=== PATIENT | male | born 1965 | race Hispanic/Latino ===

== ENCOUNTER → 2018-03-28 | Outpatient (CLI) | payer BC ==
[~2018-03-28] MED LIST: IOPAMIDOL 370 MG/ML 200 ML INFUS..BTL INJ ONE; SODIUM CHLORIDE 0.9% 50ML 50 ML ONE
[2018-03-28 09:56] LABS: BLOOD UREA NITROGEN 16 mg/dL (7-26); BUN/CREATININE RATIO 20 (6-25); CREATININE, SERUM 0.79 mg/dL (0.72-1.25); EST GLOMERULAR FILTRATION RATE > 60 ML/MIN (60-)
--- NOTE | 2018-03-28 11:32 | Diagnostic Imaging Report ---
PROCEDURE: CT scan of the chest WITH intravenous contrast, using PE protocol. TECHNIQUE: The chest was scanned utilizing a multidetector helical scanner from the lung apex through the level of the adrenal glands after the IV administration of 61 cc of Isovue 370. Coronal and sagittal multiplanar reformations were obtained. DLP: 1099.10 mGy*cm COMPARISON: None. INDICATIONS: ACUTE EMBOLISM AND THROMBOSIS OF DEEP VEIN OF RLE FINDINGS: Lines/tubes: None. Lungs and Airways: The lungs and airways are normal with no focal abnormality demonstrated. Vague barely perceptible small linear filling defect within the left lower lobe pulmonary artery likely represents changes of recannulization associated with prior PE (coronal series, image #57 and axial series, image #36 and 40). Pleura: The pleural spaces are clear. Heart and mediastinum: The thyroid gland is normal. No significant mediastinal, hilar or axillary lymphadenopathy is seen. The heart and pericardium are within normal limits. Calcification within the aorta. Soft tissues: Normal. Abdomen: Limited contrast-enhanced views of the upper abdomen show no abnormality within the visualized liver, spleen, pancreas, or kidneys. The adrenal glands are normal. Bones: There are degenerative changes of the spine. IMPRESSION: 1. Filling defect into the left lower lobe pulmonary artery could represent subacute clot with partial recannulization or chronic changes. 2. Comparison with old studies would be of benefit. Lawrence Mckeon D.O. Dictated by: Lawrence Mckeon D.O. on 03/28/2018 at 11:38 Electronically approved by: Lawrence Mckeon D.O. on 03/28/2018 at 11:38
== END ==
LOC: CT 08:52
PROVIDERS: ATTEND Family Medicine
DX: I82.401 Acute embolism and thrombosis of unspecified deep veins of right lower extremity (principal)
CPT/HCPCS: 36415; 71260; 82565; 84520; 93971; Q9967

== ENCOUNTER → 2018-10-31 | Outpatient (CLI) | payer BC ==
[~2018-10-31] MED LIST changes: +SODIUM CHLORIDE 0.9% 100 ML 0 ML ONE; +SODIUM CHLORIDE 0.9% 100 ML 100 ML ONE; -SODIUM CHLORIDE 0.9% 50ML 50 ML ONE
[2018-10-31 08:37] LABS: BLOOD UREA NITROGEN 18 mg/dL (7-26); BUN/CREATININE RATIO 17 (6-25); CREATININE, SERUM 1.03 mg/dL (0.72-1.25); EST GLOMERULAR FILTRATION RATE > 60 ML/MIN (60-)
--- NOTE | 2018-10-31 09:29 | Diagnostic Imaging Report ---
EXAM: CT Chest WITH contrast - PE Protocol INDICATION: History of pulmonary embolism. COMPARISON: None TECHNIQUE: Chest was scanned utilizing a multidetector helical scanner from the lung apex through the level of the diaphragm after administration of IV contrast. Thin section reconstructions were obtained with special concentration on the pulmonary arteries. Coronal and sagittal reformations were obtained. Pulmonary embolism protocol was performed. IV CONTRAST: 100 cc of Isovue 370 RADIATION DOSE: Total DLP: 534.4 mGy*cm Dose modulation, iterative reconstruction, and/or weight based adjustment of the mA/kV was utilized to reduce the radiation dose to as low as reasonably achievable. COMPLICATIONS: None FINDINGS: LINES/ TUBES: None. PULMONARY ARTERIES: Exam is limited by bolus timing and motion artifact. Exam is adequate for evaluation of pulmonary embolism to the lobar pulmonary arteries. The segmental and subsegmental pulmonary arteries are not well evaluated. No filling defect is identified within the pulmonary arteries to the segmental level. Main pulmonary artery measures 2.5 cm in diameter. LUNGS AND AIRWAYS: The central airways are patent. Limited evaluation due to motion artifact. No evidence of pneumonia. Mild mosaic attenuation of the lungs. PLEURA: The pleural spaces are clear. HEART AND MEDIASTINUM: The thyroid gland is normal. No mediastinal, hilar or axillary lymphadenopathy. Mild cardiomegaly. Scattered coronary and thoracic aortic atherosclerotic calcifications. There is no pericardial effusion. UPPER ABDOMEN: Limited views of the upper abdomen show no abnormality. BONES: The visualized bony thorax is within normal limits. SOFT TISSUES: Unremarkable. IMPRESSION: Exam is limited by bolus timing and motion artifact. No evidence of pulmonary embolism to the level of the lobar pulmonary arteries. Cardiomegaly. Scattered coronary and aortic atherosclerosis. Mild mosaic attenuation of the lungs, which may reflect small airways or microvascular disease. Signed by: Dr. Genny Mitchell MD on 10/31/2018 9:26 AM
== END ==
LOC: CT 07:32
PROVIDERS: ATTEND Internal Medicine
DX: I82.401 Acute embolism and thrombosis of unspecified deep veins of right lower extremity (principal)
CPT/HCPCS: 36415; 71260; 82565; 84520; 93971; Q9967